=== PATIENT | male | born 1935 | race Caucasian/White ===

== ENCOUNTER 2018-03-01 16:24 | Emergency (ER) | payer OTHER ==
[~2018-03-01] VITALS: Ht 170.2 cm; Wt 127.0 kg
[2018-03-01] MEDS ORDERED: hydrALAZINE HCL 20 MG/ML VL ONE (16:59)
[2018-03-01] MEDS ORDERED: hydrALAZINE HCL 20 MG/ML VL IV ONE (17:00)
[2018-03-01 17:03] LABS: Basophils # (auto) 0.1 uL; Basophils % (auto) 1.1 % (0.0-2.0); Eosinophils # (auto) 0.2 uL; Eosinophils % (auto) 2.3 % (0.0-7.0); Hematocrit 47.8 % (41.0-53.0); Hemoglobin 16.1 g/dL (13.5-17.5); Lymphocytes # (auto) 2.2 uL; Lymphocytes % (auto) 25.2 % (10.0-50.0); Mean Corpuscular Hemoglobin 29.3 pg (28.0-32.0); Mean Corpuscular Hgb Conc. 33.7 g/dL (32.0-36.0); Mean Corpuscular Volume 86.7 fL (80.0-100.0); Monocytes # (auto) 1.1 uL; Monocytes % (auto) 12.4 % (0.0-12.0); Neutrophils # (auto) 5.2 uL; Platelet Count (auto) 255 10^3/uL (140-450); Red Blood Cells 5.51 10^6/uL (4.5-5.90); Red Cell Distribution Width 14.8 % (11.8-14.3); White Blood Cell 8.8 10^3/uL (4.4-10.8)
[2018-03-01 17:17] LABS: Alanine Aminotransferase 24 U/L (16-61); Albumin 3.5 g/dL (3.4-5.0); Anion Gap 6 (5-15); Aspartate Aminotransferase 21 U/L (15-37); BUN/Creatinine Ratio 14.3; Blood Alcohol < 3.0 mg/dL (0-5); Blood Urea Nitrogen 16 mg/dL (7-18); Calcium 8.4 mg/dL (8.5-10.1); Carbon Dioxide 29 mmol/L (21-32); Chloride 106 mmol/L (98-107); GFR African American 81 mL/min; GFR Non-African American 67 mL/min; Glucose 101 mg/dL (74-106); Magnesium 2.2 mg/dL (1.6-2.6); Potassium 4.1 mmol/L (3.5-5.1); Sodium 141 mmol/L (136-145)
[2018-03-01 17:20] LABS: INR 0.98 (0.9-1.15); Partial Thromboplastin Time 26.1 sec (23.78-33.04); Prothrombin Time 10.5 sec (9.27-12.13)
[2018-03-01 17:23] LABS: Alkaline Phosphatase 68 U/L (45-117); Bilirubin, Total 0.6 mg/dL (0.2-1.0); Total Protein 7.1 g/dL (6.4-8.2)
[2018-03-01] MEDS ORDERED: IOHEXOL 350 MG/ML 100ML IJ ONE (17:41)
[2018-03-01 18:40] LABS: Alcohol, Urine < 3.0 mg/dL (0-5); Amphetamine Screen, Urine NEGATIVE (NEGATIVE); Barbiturate Scree,Urine NEGATIVE (NEGATIVE); Benzodiazephine Screen, Urine NEGATIVE (NEGATIVE); Cannabinoid Screen, Urine NEGATIVE (NEGATIVE); Cocaine Screen, Urine NEGATIVE (NEGATIVE); Opiate Scree,Urine NEGATIVE (NEGATIVE); Phencyclidine Screen, Urine NEGATIVE (NEGATIVE)
[2018-03-01] MEDS ORDERED: cloNIDine HCL 0.1 MG TAB PO ONE (21:15)
[2018-03-01 21:52] VITALS: BP 160/113
== END 2018-03-01 20:03 | disposition short-term general hospital (02) ==
LOC: ER 16:27
DX: R41.82 Altered mental status, unspecified (principal); R47.01 Aphasia; E78.5 Hyperlipidemia, unspecified; I10 Essential (primary) hypertension; I25.2 Old myocardial infarction; M10.9 Gout, unspecified; Z96.659 Presence of unspecified artificial knee joint; Z88.2 Allergy status to sulfonamides; Z86.73 Personal history of transient ischemic attack (TIA), and cerebral infarction without residual deficits
CPT/HCPCS: 36415; 70450; 71045; 71260; 74177; 80053; 80307; 80320; 83735; 84484; 85025; 85610; 85730; 93005; 94761; 96374; 99285; J0360; Q9967